=== PATIENT | female | born 1955 | race Caucasian/White ===

== ENCOUNTER 2021-03-27 15:52 | Observation (INO) ==
[2021-03-27 16:31] LABS: Basophils % 0.6 %; Eosinophils # 0.2 K/mcL (0.0-0.6); Eosinophils % 3.8 %; Hematocrit 39.1 % (35.3-44.9); Hemoglobin 12.5 g/dL (11.5-15.4); Immature Granulocytes % 0.2 % (0-4); Lymphocytes # 1.8 K/mcL (0.6-4.6); Lymphocytes % 28.2 %; Mean Corpuscular Hemoglobin 29.6 pg (28.0-33.3); Mean Corpuscular Volume 92.4 fL (83.0-100.0); Mean Platelet Volume 10.1 fL (9.4-12.4); Monocytes # 0.7 K/mcL (0.0-1.3); Monocytes % 11.4 %; Neutrophils # 3.5 K/mcL (1.6-8.9); Platelet Count 228 K/mcL (140-400); Red Blood Count 4.23 M/mcL (3.82-4.97); Red Cell Distribution Width 14.4 % (11.5-14.5); Segmented Neutrophils % 55.8 %; White Blood Count 6.3 K/mcL (4.3-11.1)
[2021-03-27 16:43] LABS: Prothrombin Time 11.3 Seconds (9.4-12.1)
[2021-03-27 16:46] LABS: Activated Partial Thrombo Time 25.3 Seconds (26.0-36.0)
[2021-03-27 16:51] LABS: Albumin 3.8 g/dL (3.5-5.7); Albumin/Globulin Ratio 1.5 (1.1-2.2); Bilirubin,Total 0.4 mg/dL (0.3-1.0); Calcium 8.7 mg/dL (8.6-10.3); Globulin 2.5 g/dL (2.4-3.5); Total Protein 6.3 g/dL (6.4-8.9)
[2021-03-27] MEDS ORDERED: *HR* Heparin 5,000 UNIT/ML VIAL IVP PRN ×4 (17:23→19:36)
[2021-03-27] MEDS ORDERED: *HR* Heparin 5,000 UNIT/ML VIAL IVP ONE (17:23)
[2021-03-27] MEDS ORDERED: Heparin 25,000UNIT/250ML 1/2NS 25,000 UNIT/250 ML IV.SOLN IVC SCH ×3 (17:30→19:40)
[2021-03-27] MEDS ORDERED: Isovue-370 500 ML BOTTLE IVP ONE (17:48)
[2021-03-27] MEDS: Heparin 25,000UNIT/250ML 1/2NS 25,000 UNIT/250 ML IV.SOLN IVC SCH (19:10)
[2021-03-27] MEDS ORDERED: Naloxone 0.4 MG/ML INJ IVP PRN (19:36)
[2021-03-27] MEDS: allopurinoL 100 MG TABLET PO SCH (21:35)
[2021-03-27] MEDS: Gabapentin 400 MG CAPSULE PO SCH (21:36)
[2021-03-27] MEDS ORDERED: Albuterol 2.5 MG/3 ML NEBULIZER IH SCH (23:00)
[2021-03-27] MEDS: Budesonide/Formoterol 160/4.5 1 PUFF INH IH SCH (23:48)
[2021-03-28 07:31] LABS: Basophils % 0.6 %; Eosinophils # 0.3 K/mcL (0.0-0.6); Eosinophils % 4.7 %; Hematocrit 38.5 % (35.3-44.9); Hemoglobin 12.3 g/dL (11.5-15.4); Immature Granulocytes % 0.3 % (0-4); Lymphocytes # 1.9 K/mcL (0.6-4.6); Lymphocytes % 29.7 %; Mean Corpuscular HGB Conc 31.9 g/dL (31.6-35.5); Mean Corpuscular Hemoglobin 29.4 pg (28.0-33.3); Mean Corpuscular Volume 92.1 fL (83.0-100.0); Mean Platelet Volume 10.1 fL (9.4-12.4); Monocytes # 0.5 K/mcL (0.0-1.3); Neutrophils # 3.6 K/mcL (1.6-8.9); Platelet Count 211 K/mcL (140-400); Red Blood Count 4.18 M/mcL (3.82-4.97); Red Cell Distribution Width 14.3 % (11.5-14.5); Segmented Neutrophils % 56.7 %; White Blood Count 6.4 K/mcL (4.3-11.1)
[2021-03-28] MEDS: Gabapentin 400 MG CAPSULE PO SCH ×2 (08:53→14:00)
[2021-03-28] MEDS: allopurinoL 100 MG TABLET PO SCH (08:53)
[2021-03-28] MEDS ORDERED: Mirtazapine 15 MG TABLET PO SCH (09:00)
[2021-03-28] MEDS ORDERED: Furosemide 40 MG TABLET PO SCH (09:00)
[2021-03-28] MEDS ORDERED: NON-FORMULARY MEDICATION 1 EACH EACH (Ezetimibe [Zetia] 10 MG Tablet) PO SCH (09:00)
[2021-03-28] MEDS ORDERED: lisinopriL 20 MG TABLET PO SCH (09:00)
[2021-03-28] MEDS ORDERED: Tiotropium 10 INH DOSE IH SCH (10:00)
[2021-03-28 10:10] LABS: BUN/Creatinine Ratio 24 (6-26); Blood Urea Nitrogen 24 mg/dL (8-23); Calcium 8.7 mg/dL (8.6-10.3); Carbon Dioxide 32 mEq/L (23-29); Chloride 103 mEq/L (98-107); Glucose 100 mg/dL (70-105); Osmolality,Calculated 298 (280-300); Potassium 3.8 mEq/L (3.5-5.1); Sodium 142 mEq/L (136-145); eGFR For African Americans > 60 (> 60); eGFR For Non-African Americans 56 (> 60)
[2021-03-28] MEDS: Budesonide/Formoterol 160/4.5 1 PUFF INH IH SCH (10:12)
[2021-03-28 11:42] VITALS: BP 130/72
[2021-03-28] MEDS: Heparin 25,000UNIT/250ML 1/2NS 25,000 UNIT/250 ML IV.SOLN IVC SCH (14:50)
[2021-03-28] MEDS ORDERED: Apixaban 5 MG TABLET PO ONE (15:30)
== END 2021-03-28 16:00 | disposition home or self-care (01) ==
LOC: EMEROOGRE 15:52 → INPGRE 15:52
PROVIDERS: ADMIT Family Medicine; ATTEND Family Medicine